=== PATIENT | female | born 1970 | race Caucasian/White ===

== ENCOUNTER 2022-03-23 13:14 | Emergency (ER) | payer MEDICARE, MEDICAID ==
[2022-03-23] MEDS ORDERED: 50% Dextrose in Water 50 ML Syringe ONE (13:38)
[2022-03-23] MEDS ORDERED: 50% Dextrose in Water 50 ML Syringe IVPUSH ONE (13:38)
== END 2022-03-23 14:48 | disposition home or self-care (01) ==
LOC: JD.ED 13:14
DX: E10.649 Type 1 diabetes mellitus with hypoglycemia without coma (principal); I10 Essential (primary) hypertension; F17.210 Nicotine dependence, cigarettes, uncomplicated; Z88.8 Allergy status to other drugs, medicaments and biological substances; Z88.6 Allergy status to analgesic agent; Z88.2 Allergy status to sulfonamides; Z86.73 Personal history of transient ischemic attack (TIA), and cerebral infarction without residual deficits
CPT/HCPCS: 82947; 96374; 99283; 99284-25

== ENCOUNTER 2022-05-01 21:36 | Emergency (ER) | payer MEDICARE, MEDICAID ==
[2022-05-02 00:49] LABS: CORONAVIRUS COVID-19 NAA NEGATIVE (NEGATIVE)
[2022-05-02] MEDS ORDERED: Sodium Chloride 0.9% 1,000 ML IV SCH (02:15)
[2022-05-02] MEDS ORDERED: Iopamidol 755 Mg/ML 100 ML Bottle IVPUSH ONE (02:16)
[2022-05-02] MEDS ORDERED: Sodium Chloride 0.9% 100 ML IV SCH (02:30)
== END 2022-05-02 04:12 | disposition home or self-care (01) ==
LOC: JD.ED 21:36
DX: J20.8 Acute bronchitis due to other specified organisms (principal); I10 Essential (primary) hypertension; E11.9 Type 2 diabetes mellitus without complications; F17.210 Nicotine dependence, cigarettes, uncomplicated; E66.9 Obesity, unspecified; Z68.30 Body mass index [BMI] 30.0-30.9, adult; Z88.8 Allergy status to other drugs, medicaments and biological substances; Z88.2 Allergy status to sulfonamides; Z88.5 Allergy status to narcotic agent; Z88.1 Allergy status to other antibiotic agents; Z20.822 Contact with and (suspected) exposure to COVID-19
CPT/HCPCS: 0240U; 36415; 71046; 71275; 80053; 83605; 83880; 84484; 85007; 85027; 85379; 87040; 93005; 96360; 96361; 99284; J7030; Q9967; 93010

== ENCOUNTER 2023-02-09 18:57 | Emergency (ER) | payer MEDICARE, MEDICAID ==
[2023-02-09] MEDS ORDERED: Morphine 2 MG/ML SYRINGE IVPUSH ONE (19:41)
[2023-02-09] MEDS ORDERED: Ondansetron 4 MG/2 ML SDV IVPUSH ONE ×2 (19:41→21:38)
[2023-02-09 20:01] LABS: BASOPHILS ABSOLUTE AUTO 0.08 K/mm3 (0.01-0.08); BASOPHILS PERCENT AUTO 0.7 % (0.1-1.2); EOSINOPHILS PERCENT AUTO 3.4 (0.7-5.8); HEMATOCRIT 38.9 % (34.1-44.9); HEMOGLOBIN 12.1 gm/dl (11.2-15.7); IMMATURE GRAN ABSOLUTE AUTO 0.03 K/mm3 (0.00-0.10); IMMATURE GRAN PERCENT AUTO 0.3 % (<=1.0); LYMPHOCYTES ABSOLUTE AUTO 1.85 K/mm3 (1.18-3.74); LYMPHOCYTES PERCENT AUTO 15.8 % (19.3-51.7); MEAN CORPUSCULAR HEMOGLOBIN 28.5 pg (25.6-32.2); MEAN CORPUSCULAR HGB CONC 31.1 g/dl (32.2-35.5); MEAN CORPUSCULAR VOLUME 91.7 fl (79.4-94.8); MEAN PLATELET VOLUME 9.7 fl (9.4-12.3); MONOCYTES ABSOLUTE AUTO 0.69 K/mm3 (0.24-0.36); MONOCYTES PERCENT AUTO 5.9 % (4.7-12.5); NEUTROPHILS ABSOLUTE AUTO 8.64 K/mm3 (1.56-6.13); NEUTROPHILS PERCENT AUTO 73.9 % (34.0-71.1); PLATELET COUNT,PLT 455 K/mm3 (182-369); RED BLOOD CELL COUNT 4.24 M/mm3 (3.98-5.22); WHITE BLOOD CELL COUNT,WBC 11.69 K/mm3 (3.98-10.04)
[2023-02-09 20:18] LABS: PROTHROMBIN TIME 9.6 SECONDS (9.7-12.0)
[2023-02-09 20:22] LABS: A/G RATIO 0.8 (1-2); ALBUMIN 3.4 g/dl (3.4-5.0); ANION GAP 12.2 (5-15); BILIRUBIN TOTAL 0.2 mg/dL (0.2-1.0); BUN/CREATININE RATIO 18.7 (14-18); CREATININE 1.5 mg/dL (0.55-1.02); EST CRCL DRUG DOSING (CG) 37.45 mL/min; INR < 0.93; POTASSIUM,K 4.2 mEq/L (3.5-5.1); PROTEIN TOTAL,TP 7.7 g/dl (6.4-8.2)
[2023-02-09] MEDS ORDERED: Sodium Chloride 0.9% 1,000 ML IV ONE (20:34)
[2023-02-09] MEDS ORDERED: HYDROmorphone 0.5 MG/0.5 ML Syringe IVPUSH ONE (21:38)
== END 2023-02-09 21:54 | disposition left against medical advice (07) ==
LOC: JD.ED 18:57
DX: M79.662 Pain in left lower leg (principal); I10 Essential (primary) hypertension; E11.9 Type 2 diabetes mellitus without complications; E66.9 Obesity, unspecified; Z68.34 Body mass index [BMI] 34.0-34.9, adult; Z88.1 Allergy status to other antibiotic agents; Z88.5 Allergy status to narcotic agent; Z88.2 Allergy status to sulfonamides; Z88.8 Allergy status to other drugs, medicaments and biological substances
CPT/HCPCS: 36415; 80053; 85025; 85610; 93971; 96361; 96374; 96375; 96376; 99284; J1170; J2270; J2405; J7030